=== PATIENT | female | born 1985 | race African-American/Black ===

== ENCOUNTER 2016-12-25 20:20 | Emergency (ER) | payer MEDICAID ==
[~2016-12-25] VITALS: Ht 162.6 cm; Wt 92.5 kg
[2016-12-25 20:35] VITALS: BP 131/78
[2016-12-25] MEDS ORDERED: ROBAXIN-750750 MG PO (21:09)
[2016-12-25] MEDS ORDERED: IBUPROFEN600 MG ORAL (21:09)
[2016-12-25 21:29] VITALS: BP 128/74
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
== END 2016-12-25 21:30 | disposition home or self-care (01) ==
LOC: EMR 21:15
DX: M54.2 Cervicalgia (principal); T14.8 Other injury of unspecified body region; V43.52XA Car driver injured in collision with other type car in traffic accident, initial encounter; Y93.9 Activity, unspecified; Y92.410 Unspecified street and highway as the place of occurrence of the external cause
CPT/HCPCS: 99284

== ENCOUNTER 2020-04-10 00:38 | Emergency (ER) | payer MEDICAID ==
[~2020-04-10] VITALS: Ht 162.6 cm; Wt 113.4 kg
[~2020-04-10 00:38] MED LIST: IBUPROFEN600 MG ORAL; ROBAXIN-750750 MG PO
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
[2020-04-10 00:56] VITALS: BP 114/78
[2020-04-10] MEDS ORDERED: IBUPROFEN600 M1 ORAL (01:16)
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
[2020-04-10 01:46] VITALS: BP 114/78
--- NOTE | 2020-04-10 01:46 | NUR ---
ER DISCHARGE NOTE: Patient is cleared to be discharged per ERMD, pt is aox4, on room air, with stable vital signs. Patient verbalized understanding of discharge instructions and departed to home via personal vehicle.
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
== END 2020-04-10 01:46 | disposition home or self-care (01) ==
LOC: EMR 01:12
DX: S80.02XA Contusion of left knee, initial encounter (principal); S86.012A Strain of left Achilles tendon, initial encounter; V43.52XA Car driver injured in collision with other type car in traffic accident, initial encounter; Y92.410 Unspecified street and highway as the place of occurrence of the external cause
CPT/HCPCS: 73562; 73610; Z7502; 99284